=== PATIENT | female | born 1965 | race African-American/Black ===

== ENCOUNTER 2019-11-24 16:42 | Emergency (ER) | payer SELFPAY ==
--- NOTE | 2019-11-24 17:39 | PHYS DOC ---
General Adult EDM: Chief Complaint: MECHANICAL FALL HPI: HPI: Patient is a 54 year old female who presents with complaints Rt. wrist and Rt. knee pain after fall on11/21/19. Pt. request Xrays. The. X-rays ordered. Pt. not in room when I went to evaluate. Could not be found in ED. 1715., Review of Systems: Review of Systems: Musculoskeletal: Hx. complaints of Rt. wrist and knee pain and joint pain Heart Score: Risk Factors: Risk Factors: DM, Current or recent (<one month) smoker, HTN, HLP, family history of CAD, obesity. Risk Scores: Score 0 - 3: 2.5% MACE over next 6 weeks - Discharge Home Score 4 - 6: 20.3% MACE over next 6 weeks - Admit for Clinical Observation Score 7 - 10: 72.7% MACE over next 6 weeks - Early Invasive Strategies Family History: Family History: Not currently available Current Medications: Current Meds: See nursing for home meds Allergies: Allergies: Not currently available Physical Exam: PE: Patient left before exam EKG: EKG: [] Radiology/Procedures: Radiology/Procedures: [] Course & Med Decision Making: Course & Med Decision Making Pertinent Labs and Imaging studies reviewed. (See chart for details) Patient could not be found in the ED for my exam at 1715 pt. reportedly left the ED. . Left before full evaluation. See Nursing notes. [] Teresa Disclaimer: Dragon Disclaimer: This electronic medical record was generated, in whole or in part, using a voice recognition dictation system. Departure Departure: Disposition: 01 HOME/RESIDENCE PRIOR TO ADM Condition: STABLE Referrals: PCP,NO (PCP) Justification of Admission: Justification of Admission: Justification of Admission Dx: N/A Dragon Disclaimer This chart was dictated in whole or in part using Voice Recognition software in a busy, high-work load, and often noisy Emergency Department environment. It may contain unintended and wholly unrecognized errors or omissions. JENNIFER GIBSON MD Nov 24, 2019 17:38
== END 2019-11-24 17:15 | disposition left against medical advice (07) ==
LOC: ER 16:42
DX: M25.531 Pain in right wrist (principal); M25.561 Pain in right knee; Z53.21 Procedure and treatment not carried out due to patient leaving prior to being seen by health care provider; W18.39XA Other fall on same level, initial encounter; Y93.89 Activity, other specified; Y92.89 Other specified places as the place of occurrence of the external cause; Y99.8 Other external cause status

== ENCOUNTER 2019-11-28 13:40 | Emergency (ER) | payer SELFPAY ==
[~2019-11-28] VITALS: Ht 162.6 cm; Wt 105.3 kg
[2019-11-28 13:54] VITALS: BP 137/64
--- NOTE | 2019-11-28 14:32 | RAD ---
Study: CR HAND RIGHT 2V Indication: Fall. Comparison: None. Findings: PA and lateral views of the right hand. No displaced fracture seen or traumatic malalignment. Moderate thumb CMC and mild triscaphe arthrosis. Only minimal and arthrosis such as at the little finger DIP joint. Tiny focus of ossification along the radial margin of the scaphoid waist is chronic. Impression: No acute fracture or traumatic malalignment. Electronically signed by: SHARON HOSKINS MD (11/28/2019 2:29 PM) [id number]
--- NOTE | 2019-11-28 14:34 | RAD ---
Study: CR KNEE RIGHT 3V Indication: Fall. Comparison: None. Findings: No acute fracture or traumatic malalignment. Medial compartment predominant arthrosis with mild/moderate joint space narrowing and joint line osteophyte formation. Less pronounced arthrosis at the patellofemoral compartment. No radiographic evidence for a large knee joint effusion. Impression: 1. No acute fracture. 2. Medial compartment predominant arthrosis. Electronically signed by: SHARON HOSKINS MD (11/28/2019 2:31 PM) [id number]
--- NOTE | 2019-11-28 14:45 | PHYS DOC ---
Past History Past Medical History: No Pertinent History Past Surgical History: No Surgical History Alcohol Use: None Adult General Chief Complaint Chief Complaint: LOWER EXTREMITY SWELLING HPI HPI Patient is a 54-year-old female who presents the emergency room complaining of right hand and right knee pain. Patient tripped and fell 1 week ago. She had bruising to both her hand and knee right afterwards. She states she has tried to come multiple times to be evaluated, however she does not like hospitals so she finally came today. She has been able to walk on her knee. She is able to use her hand it is just painful. Review of Systems Review of Systems General: Denies fever, chills, sweats, fatigue Eyes: Denies drainage, blurred vision, eye redness HENT: Denies rhinorrhea, sore throat, earache Respiratory: Denies cough, shortness of breath, wheezing Cardiac: Denies edema, palpitations, chest pain GI: Denies abdominal pain, Nausea, vomiting MSK: Denies back pain, neck pain Skin: Denies rash, jaundice Neuro: Denies headache, dizziness Psychiatric: Denies SI/HI Physical Exam Physical Exam General: Awake, alert, NAD. Well Nourished, well hydrated. Cooperative HEENT: Atraumatic, EOMI, PERRL, airway patent, moist oral mucosa Neck: Supple, trachea midline Respiratory: CTA bilaterally, normal effort, no wheezing/crackles CV: RRR, no murmur, cap refill <2 GI: Soft, nondistended, nontender, no masses MSK: No obvious deformities. Right knee: Normal range of motion, no joint effusion, minimal bruising. Right hand: Lateral hand tenderness, full range of motion distally, no significant deformity or swelling Skin: Warm, dry, intact Neuro: A&O x3, speech NL, sensory and motor grossly intact, no focal deficits Psych: Normal affect, normal mood, not suicidal or homicidal Current Patient Data Vital Signs Vital Signs Date Time Temp Pulse Resp B/P (MAP) Pulse Ox O2 Delivery O2 Flow Rate FiO2 11/28/19 13:54 97.8 68 14 137/64 (88) 98 Room Air EKG EKG [] Radiology/Procedures Radiology/Procedures [] Course & Med Decision Making Course & Med Decision Making Pertinent Labs and Imaging studies reviewed. (See chart for details) Patient is a 54-year-old female presents to the emergency room complaining of hand and knee pain after a fall a week ago. X-rays were done and were normal. Patient's test results and vitals while in the ED were fully reviewed and discussed with the patient. Patient is stable and at this time does not need admission to the hospital. We have discussed strict return precautions and the importance of following up with their Primary Care Physician. Patient stated understanding and was given an opportunity to ask any questions. Patient is in agreement with plan. Dragon Disclaimer Dragon Disclaimer This electronic medical record was generated, in whole or in part, using a voice recognition dictation system. Departure Departure: Impression: Primary Impression: Hand pain Additional Impression: Knee pain Disposition: 01 HOME/RESIDENCE PRIOR TO ADM Condition: STABLE Referrals: PCP,NO (PCP) Patient Instructions: Hand Contusion, Knee Pain Justification of Admission: Justification of Admission: Justification of Admission Dx: N/A Problem Qualifiers MAUREEN LANGFORD MD Nov 28, 2019 14:45
[2019-11-28] MEDS ORDERED: ACETAMINOPHEN 500 MG TABLET PO ONE ×3 (15:00)
== END 2019-11-28 14:59 | disposition home or self-care (01) ==
LOC: ER 13:40
DX: S80.01XA Contusion of right knee, initial encounter (principal); M79.641 Pain in right hand; W01.0XXA Fall on same level from slipping, tripping and stumbling without subsequent striking against object, initial encounter; Y93.89 Activity, other specified; Y92.89 Other specified places as the place of occurrence of the external cause; Y99.8 Other external cause status
CPT/HCPCS: 73120; 73562; 99284

== ENCOUNTER 2021-04-08 03:36 | Emergency (ER) | payer SELFPAY ==
[~2021-04-08] VITALS: Ht 157.5 cm; Wt 104.5 kg
[2021-04-08 03:40] VITALS: BP 158/110
[2021-04-08] MEDS ORDERED: IOHEXOL 300 MG/ML 75 ML VIAL. IV ONE (04:00)
[2021-04-08] MEDS ORDERED: IV NORMAL SALINE 1,000ML 1,000 ML IV ONE (04:00)
[2021-04-08] MEDS ORDERED: MORPHINE SULFATE 4 MG/ML DISP.SYRIN. IV ONE (04:00)
[2021-04-08] MEDS ORDERED: ONDANSETRON ODT 4 MG TAB.RAPDIS PO ONE (04:00)
--- NOTE | 2021-04-08 04:03 | PHYS DOC ---
Past History Past Medical History: No Pertinent History Past Surgical History: No Surgical History Alcohol Use: None General Adult EDM: Chief Complaint: ABDOMINAL PAIN HPI: HPI: Patient is a 55-year-old female coming in via EMS for low midline abdominal pain. Patient states the pain started about 14 hours prior to arrival she is in the couch. This is a cramping that comes and goes. Patient states she has had some loose stools and felt like she had gas in her stomach was distended. She says she took some [id number] antacids and anti-gas medicines without improvement. Last bowel movement 1 hour prior to arrival. Patient states any vomiting, hematuria, dysuria, vaginal bleeding or discharge. Patient denies any past surgical history other than a BTL, denies any past medical history. Patient states both cigarettes but denies alcohol and drugs. No known sick contacts, recent travel, or undercooked foods. Review of Systems: Review of Systems: All other systems within normal limits except for as noted in the HPI Current Medications: Current Meds: Current Medications Medications (Trade) Dose Ordered Sig/Rose Start Time Stop Time Status Last Admin Dose Admin Morphine Sulfate (Morphine 4mg Syringe) 4 mg 1X ONCE 04/08/21 04:00 04/08/21 04:01 UNV Ondansetron HCl (Zofran Odt) 4 mg 1X ONCE 04/08/21 04:00 04/08/21 04:01 UNV Sodium Chloride 1,000 ml @ 1,000 mls/hr 1X ONCE 04/08/21 04:00 04/08/21 04:59 UNV Physical Exam: PE: Constitutional: Well developed, well nourished, no acute distress, non-toxic appearance. [] HENT: Normocephalic, atraumatic, bilateral external ears normal, nose normal. [] Eyes: PERRLA, conjunctiva normal, no discharge. [] Neck: No rigidity, supple, no stridor. [] Cardiovascular: Regular rate and rhythm, brisk cap refill [] Lungs & Thorax: Non labored symmetric respirations, no tachypnea or respiratory distress [] Abdomen: Soft, nondistended, tenderness in lower abdomen without guarding. Skin: Warm, dry, no erythema, no rash. [] Back: Unremarkable Extremities: No deformities, range of motion grossly intact, no lower extremity edema [] Neurologic: Alert and oriented X 3, no focal deficits noted. [] Psychologic: Affect normal, judgement normal, mood normal. [] Current Patient Data: Vital Signs: Vital Signs Date Time Temp Pulse Resp B/P (MAP) Pulse Ox O2 Delivery O2 Flow Rate FiO2 04/08/21 03:40 98.5 95 16 158/110 (126) 97 Room Air EKG: EKG: [] Radiology/Procedures: Radiology/Procedures: [] Heart Score: C/O Chest Pain: No Risk Factors: Risk Factors: DM, Current or recent (<one month) smoker, HTN, HLP, family history of CAD, obesity. Risk Scores: Score 0 - 3: 2.5% MACE over next 6 weeks - Discharge Home Score 4 - 6: 20.3% MACE over next 6 weeks - Admit for Clinical Observation Score 7 - 10: 72.7% MACE over next 6 weeks - Early Invasive Strategies Course & Med Decision Making: Course & Med Decision Making Pertinent Labs and Imaging studies reviewed. (See chart for details) [] Dragon Disclaimer: Dragon Disclaimer: This electronic medical record was generated, in whole or in part, using a voice recognition dictation system. Departure Departure: Impression: Primary Impression: Infectious colitis Disposition: HOME / SELF CARE / HOMELESS Condition: STABLE Referrals: PCPJOAN (PCP) Patient Instructions: Colitis Scripts Tramadol Hcl (TRAMADOL HCL) 50 Mg Tablet 50 MG PO PRN Q6HRS PRN for PAIN for 3 Days, #10 TAB Prov: JANETTE EVANS MD 04/08/21 Ciprofloxacin Hcl (CIPRO) 500 Mg Tablet 1 TAB PO BID for antibiotic for 5 Days, #10 TAB 0 Refills Prov: JANETTE EVANS MD 04/08/21 JANETTE EVANS MD Apr 08, 2021 04:03
[2021-04-08] MEDS ORDERED: CONTRAST GIVEN. MC PRN (04:15)
[2021-04-08 04:16] LABS: BASO # 0.1 x10^3/uL (0.0-0.2); BASO % 1 % (0-3); EOS # 0.2 x10^3/uL (0.0-0.7); EOS % 2 % (0-3); HEMOGLOBIN 16.1 g/dL (12.0-15.5); LYMPH # 1.5 x10^3/uL (1.0-4.8); LYMPH % 15 % (24-48); MEAN CORPUSCULAR HEMOGLOBIN 30 pg (25-35); MEAN CORPUSCULAR HGB CONC 34 g/dL (31-37); MEAN CORPUSCULAR VOLUME 90 fL (79-100); MONO # 0.4 x10^3/uL (0.0-1.1); MONO % 4 % (0-9); NEUT # 8.1 x10^3uL (1.8-7.7); NEUT % 79 % (31-73); PLATELET COUNT 282 x10^3/uL (140-400); RED BLOOD COUNT 5.34 x10^6/uL (3.50-5.40); RED CELL DISTRIBUTION WIDTH 14.6 % (11.5-14.5); WHITE BLOOD COUNT 10.3 x10^3/uL (4.0-11.0)
[2021-04-08 04:23] LABS: CALCIUM 8.9 mg/dL (8.5-10.1); CREATININE 0.8 mg/dL (0.6-1.0); GFR 89.5; POTASSIUM 3.8 mmol/L (3.5-5.1)
[2021-04-08 04:29] LABS: ALBUMIN 3.5 g/dL (3.4-5.0); ALBUMIN/GLOBULIN RATIO 0.7 (1.0-1.7); TOTAL BILIRUBIN 0.4 mg/dL (0.2-1.0); TOTAL PROTEIN 8.2 g/dL (6.4-8.2)
--- NOTE | 2021-04-08 05:10 | RAD ---
PQRS Compliance Statement: One or more of the following individualized dose reduction techniques were utilized for this examinat ion: 1. Automated exposure control 2. Adjustment of the mA and/or kV according to patient size 3. Use of iterative reconstruction technique CT ABDOMEN+PELVIS W Clinical Indication: Reason: Low abd pain with cramping, diarrhea Comparison: None. Technique: Helical CT imaging of the abdomen and pelvis is performed after 75 cc of Omnipaque 300 IV contrast. Oral contrast not administered. Findings: There is a nodular opacity in the left lung base on the first image measuring 7 mm. There is minimal atelectasis or scarring in the left lower lobe. Cardiac size is normal. The liver, gallbladder, spleen, pancreas, adrenal glands, abdominal aorta, and kidneys are normal. The stomach is unremarkable. There is no dilated small bowel. The appendix is normal. There are a few diverticula of the descending colon. There is moderate wall thickening of the proximal descending co shayla and the transverse colon. There is severe wall thickening of ascending colon. No abnormality of t he terminal ileum is seen. There is mild induration surrounding the ascending colon. No abdominal manju nopathy or free fluid is identified. The urinary bladder is normal. Uterus and ovaries are unremarkable. There is trace pelvic free fluid. There is mild grade there is arthropathy of the hips, worse on the left. 1 anterolisthesis of L4 on L 5. IMPRESSION: 1. There is severe wall thickening of the ascending colon and moderate wall thickening of the transv erse and proximal descending colon suggesting colitis, probably infectious or inflammatory bowel dise ase. 2. Mild descending colon diverticulosis. 3. There is a nodular opacity in the left lung base on the first image. A pulmonary nodule is possib le. Alternatively the appearance could be due to partial volume averaging. If patient has risk factor s for lung malignancy consider outpatient CT chest. Electronically signed by: David Adam MD (04/08/2021 5:07 AM) [facility]
[2021-04-08 05:27] LABS: BACTERIA,URINE FEW /HPF (0-FEW); BILIRUBIN,URINE NEG (NEG); CLARITY,URINE HAZY; COLOR,URINE YELLOW; GLUCOSE,URINE NEG (NEG); NITRITE,URINE NEG (NEG); SQUAMOUS EPITHELIAL CELL,UR OCC /LPF; UROBILINOGEN,URINE 0.2 mg/dL (0.2 mg/dL)
[2021-04-08] MEDS ORDERED: CIPROFLOXACIN HCL 500 MG TABLET PO ONE (05:30)
[2021-04-08] MEDS ORDERED: TRAM50TA PO (05:33)
[2021-04-08] MEDS ORDERED: CIPR500T94 PO (05:33)
== END 2021-04-08 05:53 | disposition home or self-care (01) ==
LOC: ER 03:36
DX: A09 Infectious gastroenteritis and colitis, unspecified (principal)
CPT/HCPCS: 36415; 74177; 80053; 81001; 83690; 85025; 87086; 96361; 96374; 99285; J2270; J7030; Q0162; Q9967